=== PATIENT | female | born 1980 | race African-American/Black ===

== ENCOUNTER 2016-12-25 18:12 | Emergency (ER) | payer OTHER ==
[~2016-12-25] VITALS: Ht 157.5 cm; Wt 95.3 kg
--- NOTE | 2016-12-25 19:35 | ED GI/GU/ABDOMINAL COMPLAINT ---
History of Present Illness General Chief Complaint: Female Urogenital Problems Stated Complaint: RED AND IRRITATED VAGINAL AREA Source: patient Exam Limitations: no limitations Allergies Coded Allergies: tramadol (HEADACHES 12/25/16) Triage Note: VAGINAL IRRITATION AND PAIN 2-3 DAYS Triage Nurses Notes Reviewed? yes ? N Is pt currently ? No HPI: this patient is a 36-year-old female who presented to the emergency department today for evaluation of vaginal irritation and . The patient reported that over a week ago she started having intercourse with a new partner. The patient reported that she has. She reported that she does not know his sexual history. She reported that she has a sexual history including bacterial vaginosis and Trichomonas. No other sexually transmitted diseases. Patient reported that she was seen at a clinic and given Flagyl. A speculum exam was not done at that time. Patient reported that she has not been having any itching, but she reported that her external genitalia has been red and raw. She denied any odor or vaginal bleeding. No urinary burning, urgency, frequency, or blood in the urine. She denied any back pain from baseline, abdominal pain, nausea, vomiting, fevers or chills. (PAVAN CHAVEZ,TOO) Vital Signs & Intake/Output Vital Signs & Intake/Output Vital Signs Date Time Temp Pulse Resp B/P Pulse O2 O2 Flow FiO2 Ox Delivery Rate 12/25 2103 98.2 88 18 153/88 98 Room Air / 1845 97.0 84 18 153/85 98 Room Air ED Intake and Output 03/ 0000 12/25 1200 Intake Total Output Total Balance Patient 210 lb Weight Reconcile Medications Fluconazole (Diflucan) 150 MG TABLET 1 TAB PO ONCE PRN YEAST INFECTION Metronidazole (Flagyl) 500 MG TABLET 1 TAB PO BID DECAL TRANSFERRER ISSUE (Reported) Norethindrone-E.estradiol-Iron (Loestrin Fe 1-20 Tablet) (Unknown Strength) TABLET (Unknown Dose) PO DAILY CONTROL (Reported) Oxycodone HCl/Acetaminophen (Percocet 10-325 MG Tablet) 10 MG-325 MG TABLET 1 TAB PO BID PAIN (Reported) (MARIE SORENSEN,BRENTON Pollard) Past History Travel History Traveled to [place] past 21 day No Medical History Any Pertinent Medical History? see below for history DECAL TRANSFERRER/Reproductive: bacterial vaginitis, trichomoniasis Surgical History Surgical History: non-contributory Psychosocial History What is your primary language Portuguese Tobacco Use: Never used ETOH Use: denies use Illicit Drug Use: denies illicit drug use Family History Hx Contributory? No (TOO BROWNE PA-C) Review of Systems Review of Systems Constitutional: Reports: no symptoms. EENTM: Reports: no symptoms. Respiratory: Reports: no symptoms. Cardiovascular: Reports: no symptoms. GI: Reports: no symptoms. Genitourinary: Reports: see HPI. Musculoskeletal: Reports: no symptoms. Skin: Reports: no symptoms. Neurological/Psychological: Reports: no symptoms. All Other Systems: Reviewed and Negative (TOO BROWNE PA-C) Physical Exam Physical Exam Gastrointestinal: normal bowel sounds, soft, non-tender, no organomegaly, no rebound or guarding. No peritoneal signs. Comments: Well-developed well-nourished person in no acute distress HEENT: Normal EENT exam, head normocephalic, moist mucous membranes Pupils equally round and reactive to light. Neck: Supple Back: Normal gait. No CVA tenderness Respiratory: No respiratory distress. Speaking in full sentences seconds Abdomen: Soft, nontender and nondistended Genital examination: External genitalia without any lesions or edema. Vaginal speculum examination revealed moist, pink mucosa with non-adherent white discharge without any bleeding. No cervical lesions appreciated. No cervical motion tenderness on bimanual examination. No adnexal masses appreciated on bimanual examination. Extremity: Normal and equal pulses. Neuro: Alert oriented x3, cranial nerves II through XII grossly intact. Skin: No appreciable rash on exposed skin, skin is warm and dry. Psych: Mood and affect is normal Core Measures ACS in differential dx? No Severe Sepsis Present: No Septic Shock Present: No (TOO BROWNE PA-C) Progress Differential Diagnosis: appendicitis, biliary colic, bowel obstruction, colon cancer, cholecystitis, diverticulitis, ectopic , endometritis, intrauterine , kidney stone, ovarian cyst, ovarian torsion, PID/ cervicitis, threatened AB, UTI/pyelo Initial ED EKG: none (TOO BROWNE PA-C) Plan of Care: Orders Procedure Date/time Status CULTURE,URINE 12/25 1938 Active TRICHOMONAS 12/25 1938 Complete POTASSIUM HYDROXIDE (JESSICA) 12/25 1938 Complete GENITAL CULTURE 12/25 1938 Active CHLAMYDIA-GC DNA PROBE 03/04 1939 Active URINE 12/25 1938 Complete URINALYSIS 12/25 1938 Complete Laboratory Tests 12/25/161999: Urine Color YEL, Urine Clarity CLEAR, Urine pH 6.0, Ur Specific [place] 1.025, Urine Protein NEG, Urine Ketones NEG, Urine Nitrite NEG, Urine Bilirubin NEG, Urine Urobilinogen 0.2, Ur Leukocyte Esterase TRACE H, Ur Microscopic SEDIMENT EXAMINED, Urine RBC 1-3, Urine WBC 1-3 H, Ur Epithelial Cells FEW, Urine Bacteria FEW H, Urine Mucus MOD H, Urine Hemoglobin TRACE-LYSED, Urine Glucose NEG, Urine Test NEGATIVE Microbiology 12/25 2021 GENITAL: GC DNA Probe - RECD 12/25 2021 GENITAL: Chlamydia DNA Probe (JEFRY) - RECD 12/25 2021 GENITAL: JESSICA Preparation - COMP YEAST MOLD 12/25 2021 GENITAL: Trichomonas Preparation - COMP 12/25 2021 GENITAL: Genital Culture - RES YEAST 12/26 1999 URINE ROUT: Urine Culture - RES Departure Departure Disposition: HOME OR SELF CARE Condition: Stable Clinical Impression Primary Impression: Yeast infection Referrals: PATIENT HAS NO PRIMARY CARE DR (PCP/Family) Additional Instructions: Continue to take all previously prescribed medication as directed. Refill the Diflucan prescription given to here in the emergency department should your symptoms persist. Follow-up with your HIGHWALL DRILL OPERATOR. Return for any worsening symptoms or concerns. Departure Forms: Customer Survey General Discharge Information Prescriptions: Current Visit Scripts Fluconazole (Diflucan) 1 TAB PO ONCE PRN YEAST INFECTION #1 TAB Ref 1 (PAVAN CHAVEZ,TOO) PA/MANAGER MOLECULAR Co-Sign Statement Statement: ED Attending supervision documentation- [] I saw and evaluated the patient. I have also reviewed all the pertinent lab results and diagnostic results. I agree with the findings and the plan of care as documented in the PA's/MANAGER MOLECULAR's documentation. [X] I have reviewed the ED Record and agree with the PA's/MANAGER MOLECULAR's documentation. [] Additions or exceptions (if any) to the PAs/MANAGER MOLECULAR's note and plan are summarized below: [] (MARIE SORENSEN,BRENTON Pollard)
[2016-12-25] MEDS ORDERED: FLAGYL500 MG PO (19:39)
[2016-12-25] MEDS ORDERED: LOESTRIN FE 1-1 EACH PO (19:40)
[2016-12-25] MEDS ORDERED: PERCOCET 10-321 EACH PO (19:40)
[2016-12-25] MEDS ORDERED: DIFLUCAN150 M1 PO (20:47)
[2016-12-25 21:03] VITALS: BP 153/88
== END 2016-12-25 21:22 ==
LOC: ERH 18:12
DX: B37.3 Candidiasis of vulva and vagina (principal)
CPT/HCPCS: 87070; 81001; 81025; 87071; 87086; 87491; 87591; 96372; J0696

== ENCOUNTER 2018-07-13 19:43 | Emergency (ER) | payer OTHER ==
[~2018-07-13] VITALS: Ht 154.9 cm; Wt 80.3 kg
[~2018-07-13 19:43] MED LIST: DIFLUCAN150 M1 PO; FLAGYL500 MG PO; LOESTRIN FE 1-1 EACH PO; PERCOCET 10-321 EACH PO
--- NOTE | 2018-07-13 21:34 | ED GENERAL ADULT ---
History of Present Illness General Chief Complaint: General Adult Stated Complaint: PT POSSIBLE UTI Source: patient Exam Limitations: no limitations Vital Signs & Intake/Output Vital Signs & Intake/Output Vital Signs Date Time Temp Pulse Resp B/P B/P Pulse O2 O2 Flow FiO2 Mean Ox Delivery Rate 07/13 2152 98.0 68 18 134/89 07/13 1952 96.7 88 18 132/84 99 Room Air Allergies Coded Allergies: tramadol (HEADACHES 12/25/16) Reconcile Medications Fluconazole (Diflucan) 150 MG TABLET 1 TAB PO ONCE PRN YEAST INFECTION Metronidazole (Flagyl) 500 MG TABLET 1 TAB PO BID TRAFFIC RATE COMPUTER ISSUE (Reported) Norethindrone-E.estradiol-Iron (Loestrin Fe 1-20 Tablet) (Unknown Strength) TABLET (Unknown Dose) PO DAILY CONTROL (Reported) Oxycodone HCl/Acetaminophen (Percocet 10-325 MG Tablet) 10 MG-325 MG TABLET 1 TAB PO BID PAIN (Reported) Triage Note: PT FROM HOME C/O OF FREQUENT URINATION, PT DENIES BURNING UPON URINATION. PT STATES THE S/S BEGAN YESTERDAY. PT STATES SHE HAD INTERCOURSE WITH A FRIEND USING A CONDOM BUT NOW IS NERVOUS ABOUT STD. PT STATES PRESSURE IN LOWER ABD. PT CALLED PCP WHO BELIEVES IT IS A UTI. VSS. Triage Nurses Notes Reviewed? yes : No Patient currently breastfeeds: No HPI: 38-year-old -[place] female who presents with urinary frequency after having suspected unprotected intercourse 2 days ago with a man who had initially worn a condom and then upon finishing intercourse noticed that the condom was in the patient's hand. Patient is concerned that she may have contracted an STD. She spoke to her testing machine operator who attempted to reassure the patient and suggested that her symptoms were more consistent with a UTI. Patient is requesting postcoital antibiotics for both UTI and STD. She denies any abdominal pain, hematuria, fever chills, or vaginal discharge. Her last menstrual period was approximately 1 month ago Past History Travel History Traveled to [place] past 21 day No Medical History Any Pertinent Medical History? see below for history Neurological: NONE EENT: NONE Cardiovascular: NONE Respiratory: NONE Gastrointestinal: NONE Renal: NONE Musculoskeletal: CHRONIC BACK PAIN LEFT KNEE ARTHRITIS Psychiatric: NONE Endocrine: NONE TRAFFIC RATE COMPUTER/Reproductive: bacterial vaginitis, trichomoniasis Surgical History Surgical History: non-contributory Psychosocial History What is your primary language Zimbabwean Tobacco Use: Current Daily Use Daily Tobacco Use Amount/Type: =< 4 Cigarettes daily ETOH Use: occasional use Illicit Drug Use: denies illicit drug use Family History Hx Contributory? No Review of Systems Review of Systems Constitutional: Reports: see HPI. Denies: no symptoms, chills, diaphoresis, fever, malaise, weakness, unexplained weight loss. Physical Exam Physical Exam General Appearance: well developed/nourished, no apparent distress, alert, awake Head: atraumatic, normal appearance Eyes: Bilateral: normal appearance. Ears, Nose, Throat: hearing grossly normal Neck: supple Respiratory: normal breath sounds, chest non-tender, no respiratory distress, quiet respiration Cardiovascular: regular rate/rhythm Gastrointestinal: soft, non-tender, no organomegaly Neurologic/Psych: awake, alert, oriented x 3 Core Measures ACS in differential dx? No CVA/TIA Diagnosis: No Sepsis Present: No Sepsis Focused Exam Completed? No Progress Differential Diagnoses I considered the following diagnoses in my evaluation of the patient: [UTI, STD, vaginitis Plan of Care: Orders Procedure Date/time Status Add-on Test (ER Only) 07/13 2213 Active URINE 07/13 2135 Active CULTURE,URINE 07/13 2020 Active URINALYSIS 07/13 2020 Complete Laboratory Tests 07/13/182120: Urine Color STRAW, Urine Clarity CLEAR, Urine pH 6.5, Ur Specific [place] <= 1.005, Urine Protein NEG, Urine Ketones NEG, Urine Nitrite NEG, Urine Bilirubin NEG, Urine Urobilinogen 0.2, Ur Leukocyte Esterase NEG, Ur Microscopic SEDIMENT EXAMINED, Urine RBC RARE, Urine WBC RARE, Ur Epithelial Cells RARE, Urine Bacteria RARE H, Urine Hemoglobin TRACE-LYSED, Urine Glucose NEG Microbiology 07/13 2121 URINE ROUT: Urine Culture - RECD Initial ED EKG: none Departure Departure Time of Disposition: 2213 Disposition: HOME OR SELF CARE Condition: Stable Clinical Impression Primary Impression: Urine frequency Referrals: Patient Has No Primary Care Dr (PCP/Family) Departure Forms: Customer Survey General Discharge Information Critical Care Note Critical Care Note Critical Care Time: non-applicable
[2018-07-13 21:52] VITALS: BP 134/89
== END 2018-07-13 22:26 ==
LOC: ERH 19:43
DX: R35.0 Frequency of micturition (principal); F17.210 Nicotine dependence, cigarettes, uncomplicated; F10.10 Alcohol abuse, uncomplicated
CPT/HCPCS: 81001; 81025; 87086; 96372; J0456; J0696